=== PATIENT | male | born 2000 | race African-American/Black ===

== ENCOUNTER 2021-07-19 09:21 | Emergency (ER) | payer MEDICAID, OTHER ==
[~2021-07-19] VITALS: Ht 185.4 cm; Wt 72.6 kg
[2021-07-19 09:35] VITALS: BP 143/86
[2021-07-19] MEDS ORDERED: ALPR1TAB7 PO (10:06)
== END 2021-07-19 10:13 | disposition home or self-care (01) ==
LOC: ER 09:21
DX: F41.9 Anxiety disorder, unspecified (principal); F12.10 Cannabis abuse, uncomplicated; R94.31 Abnormal electrocardiogram [ECG] [EKG]; Z76.0 Encounter for issue of repeat prescription
CPT/HCPCS: 93005